=== PATIENT | male | born 1985 | race Caucasian/White ===

== ENCOUNTER → 2017-01-21 | Day surgery (SDC) | payer OTHER ==
[~2017-01-21] MED LIST: ALLERGY PO; COUGH MED PO; FLONASE 0.05% N16 G1; FLOVENT HFA10.6 G1 INH
--- NOTE | ~2017-01-21 | HP ---
Unit #: [id number] #: [id number] Patient: CHARLIE CHARLTON JR [id number] [address] [place], [place] [address] [id number] O MR#: [id number] NAME: CHARLIE CHARLTON JR ROOM: Age: Sex: M Admission Date: 01/21/2017 : 1985 Attending Physician: Kenzie Dugan M.D. Primary Care Physician: Viral Clayton M.D. HISTORY AND PHYSICAL CHIEF COMPLAINT Left foot deformity. HISTORY OF PRESENT ILLNESS The patient is a 31-year-old male with mental retardation who presented initially with bilateral equinus contracture and inability to wear his ankle-foot orthoses. He underwent successful right Achilles tendon lengthening in August 2016 and had complete healing. He is now to undergo left Achilles tendon lengthening with posterior capsule release. He has in excess of 40 degrees of equinus. PAST MEDICAL HISTORY Remarkable for mental retardation. HOME MEDICATIONS None. ALLERGIES None. SOCIAL HISTORY He lives with his parents. He is a nonsmoker. FAMILY HISTORY Remarkable for diabetes, hypertension, hypercholesterolemia, arthritis. REVIEW OF SYSTEMS Otherwise unremarkable. PHYSICAL EXAMINATION GENERAL: This is a young adult male who will follow commands and answer questions with yes and no answers. PHARYNX: Clear. He has poor dentition. HEART: Regular sinus rhythm without murmurs. LUNGS: Clear. ABDOMEN: Soft and nontender. Examination of the left foot shows about 40 degrees of fixed equinus. Pulses are intact. Sensation is normal. Motor exam could not be tested. Sensation is apparently intact. Pulses are intact. Past radiographs of the left ankle show no bony abnormalities with the exception of the ankle equinus contracture. Unit #: [id number] #: [id number] Patient: CHARLIE CHARLTON JR ADMITTING DIAGNOSIS Left ankle equinus contracture. PLAN The patient is admitted for open Achilles tendon lengthening and posterior capsular release. This procedure was described to his parents with the risks of bleeding, infection, nerve damage, need for further surgery in the future, anesthetic complication, failure to walk normally even in his braces. They understand the above risks and agrees to proceed. Dictated by Kenzie Dugan M.D. RTLouann/mary kate TD: 01/20/2017 19:16 JOB #: [id number] HISTORY AND PHYSICAL Page 1 of 1 X Severiano Dugan MD HISTORY AND PHYSICAL
--- NOTE | ~2017-01-21 | OR ---
Unit #: [id number] #: [id number] Patient: CHARLIE CHARLTON JR [id number] [facility]. [place], [place] [address] [id number] O MR#: [id number] NAME: CHARLIE CHARLTON JR ROOM: Date of Procedure: 01/21/2017 Admission Date: 01/21/2017 Surgeon: Kenzie Dugan M.D. : 1985 Attending Physician: Kenzie Dugan M.D. Primary Care Physician: Viral Clayton M.D. OPERATIVE REPORT PREOPERATIVE DIAGNOSIS Left ankle equinus. POSTOPERATIVE DIAGNOSIS Left ankle equinus. PROCEDURE PERFORMED Left open Achilles tendon lengthening with posterior ankle joint capsule release ([id number]). COLOR WORKER SUZIE Simpson and MD Sammie. ANESTHESIA Popliteal saphenous block and general. INDICATIONS FOR SURGERY The patient is a 31-year-old male with mental retardation and significant bilateral ankle joint equinus. He has responded favorably to right Achilles tendon lengthening 4 months ago. He is now to undergo left Achilles tendon lengthening. 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 He is unable to wear his ankle-foot orthoses, surgical intervention is therefore indicated. DESCRIPTION OF PROCEDURE The patient was taken to the operating room and placed in supine position and general anesthetic was induced. The left foot was then evaluated and a popliteal saphenous block was performed by the Anesthesia Service. The left leg was identified as the correct operative extremity during the time-out procedure. The IV antibiotic protocol was followed. The left leg was then prepped and draped in the usual sterile fashion. The leg was exsanguinated with an Esmarch bandage, which was left wrapped around the calf as a tourniquet. A 10-cm medial longitudinal incision was made over the Achilles tendon. Subcutaneous tissue was carefully divided. The Achilles paratenon was opened. The Achilles tendon was then lengthened coronally in a Z-fashion. The plantaris tendon was then cut, we still had difficulty dorsiflexing the ankle passed 10 degrees of equinus. Dissection proceeded deep to the deep muscle fascia, and then release of the posterior ankle joint capsule was performed with tenotomy scissors. The ankle then rested in 5 degrees of ankle joint dorsiflexion. The Achilles tendon was then repaired with Unit #: [id number] #: [id number] Patient: CHARLIE CHARLTON JR 2-0 FiberWire suture using a modified Florez technique and a Krackow technique. The subcutaneous tissue was carefully closed with 3-0 Vicryl. The skin was closed with 3-0 nylon horizontal mattress sutures. Xeroform gauze, dressing, sponges, Webril, and a posterior fiberglass splint were applied. The patient was then transported to the recovery room in stable condition. ESTIMATED BLOOD LOSS Minimal. COMPLICATIONS None. SPECIMENS None. TOURNIQUET TIME Approximately 20 minutes. Dictated byApril Beck/josh TD: 01/22/2017 00:22 JOB #: [id number] OPERATIVE REPORT Page 1 of 1 X Severiano Dugan MD X PROCEDURE OPERATIVE NOTE
[2017-01-21 12:59] LABS: HEMATOCRIT 47.4 % (38.0-50.0); HEMOGLOBIN 15.9 gm/dL (13.0-16.0); MEAN CELL VOLUME 86.4 FL (83-96); MEAN CORPUSCULAR HEMOGLOBIN 28.9 PG (28-34); MEAN CORPUSCULAR HGB CONC 33.4 g/dL (30-36); MEAN PLATELET VOLUME 10.5 FL (6.5-11.5); RED BLOOD COUNT 5.49 X10e (3.90-5.60); RED CELL DISTRIBUTION WIDTH 13.9 % (11.0-15.5); WHITE BLOOD COUNT 8.2 X10e3 (4.0-10.5)
== END | disposition home or self-care (01) ==
LOC: CSUR 11:00
PROVIDERS: Orthopaedic Surgery
DX: M21.6X2 Other acquired deformities of left foot (principal); Z90.49 Acquired absence of other specified parts of digestive tract; Z88.8 Allergy status to other drugs, medicaments and biological substances; Z79.899 Other long term (current) drug therapy
CPT/HCPCS: 85027; J0690; J1885; J2250; J2405; J3010